=== PATIENT | female | born 2000 | race Caucasian/White ===

== ENCOUNTER → 2024-07-29 15:13 | Outpatient (CLI) | payer OTHER, SELFPAY ==
--- NOTE | 2024-07-29 15:18 | DI.US.S_ITS ---
PROCEDURE: US PELVIC COMPLETE INDICATIONS: PRIMARY DYSMENORRHEA / IUD TECHNIQUE: Real-time scanning was performed of the pelvic organs, with image documentation. Additional endovaginal scanning was necessary due to incomplete visualization of the adnexal and endometrial structures by transabdominal scanning. COMPARISON: None. FINDINGS: Uterus: Uterus is anteverted and normal in size at 7.6 x 3.6 x 5.5 cm. The myometrium is homogeneous. The endometrium measures 2.7 mm combined thickness. Intrauterine device centrally positioned within the uterus. Ovaries: The right ovary measures 2.7 x 1.4 x 1.8 cm, with a calculated ovarian volume of 3.5 cc. The left ovary measures 2.4 x 2.9 x 2.1 cm, with a calculated ovarian volume of 7.5 cc. The ovaries have a normal sonographic appearance. Less than 12 follicles can be seen in each ovary. No adnexal masses are seen. Other: No pathologic free abdominal or pelvic fluid. IMPRESSION: Normal pelvic sonogram. Intrauterine device centrally positioned within the uterus. Dictated by: Isabel Andino MD, PhD on 07/29/2024 at 15:57 Approved by: Isabel Andino MD, PhD on 07/29/2024 at 16:01
== END ==
LOC: US 15:17
PROVIDERS: PCP Registered Nurse; Referring Provider Internal Medicine; Visit Provider Internal Medicine
DX: N94.4 Primary dysmenorrhea (principal); Z97.5 Presence of (intrauterine) contraceptive device
CPT/HCPCS: 76830; 76856